=== PATIENT | male | born 1990 | race Caucasian/White ===

== ENCOUNTER 2018-09-23 22:42 | Emergency (ER) | payer BC, OTHER | END 2018-09-24 00:46 | disposition left against medical advice (07) | LOC: ER FS 22:44 | DX: R68.89 Other general symptoms and signs (principal) ==

== ENCOUNTER 2022-08-21 18:31 | Day surgery (SDC) | payer BC ==
[2022-08-21] VITALS (7 sets, daily range): BP systolic 103–130; BP diastolic 56–77
[~2022-08-21] VITALS: Ht 185.4 cm; Wt 130.6 kg
--- NOTE | 2022-08-21 18:57 | ED Abdominal Pain ---
General Chief Complaint: Abdominal/GI Problems Stated Complaint: LOWER ABDOMINAL PAIN Nursing Triage Note: PT AMB TO TRIAGE, PT CO OF R LOWER ABD PAIN SINCE LAST PM. DENIES N/V, HAS LOW GRADE FEVER. WAS SEEN AT DR CABRERA OFFICE IN [facility]. RATES PAIN 11/26. DENIES PROB W B OR B Source of Information: Patient History of Present Illness Date Seen by Provider: Aug 21, 2022 Time Seen by Provider: 18:49 Initial Comments PT ARRIVES VIA POV FROM HOME IN [place] C/O RLQ PAIN THAT WOKE HIM UP SEVERAL TIMES DURING THE NIGHT LAST NIGHT, AND HAS BEEN CONSTANT ALL DAY TODAY AND GETTING WORSE PAIN IS WORSE WITH WALKING, ANY MOVEMENT, BUMPS IN THE ROAD WHILE RIDING IN VEHICLE HAD SUBJECTIVE FEVER LAST NIGHT NO NAUSEA/VOMITING/DIARRHEA/CONSTIPATION NO URINARY SYMPTOMS DECREASED APPETITE TODAY, AT AROUND NOON HAD A CHEESEBURGER NO HISTORY OF SIMILAR NO PRIOR ABDOMINAL SURGERIES OR GI PROBLEMS PT IS NON-INSULIN DEPENDENT DIABETIC ON METFORMIN HE DOES NOT CHECK HIS BLOOD SUGAR OR FOLLOW DIABETIC DIET. HE HAS NOT TAKEN ANYTHING FOR PAIN WAS SEEN AT DR. AVILA'S OFFICE TODAY AROUND 1600--NO TESTS DONE. WAS TOLD THAT IF IT GOT WORSE TO GO TO ER . PCP: DR. AVILA, [place] Allergies and Home Medications Allergies Uncoded Allergies: ENVIROMENTAL (Allergy, Unknown, 08/21/22) Review of Systems Review of Systems Constitutional: see HPI, fever EENTM: No Symptoms Reported Respiratory: No Symptoms Reported Cardiovascular: No Symptoms Reported Gastrointestinal: See HPI, Abdominal Pain; Denies Constipated, Denies Diarrhea, Denies Nausea, Denies Vomiting Genitourinary: No Symptoms Reported Musculoskeletal: no symptoms reported Skin: no symptoms reported Psychiatric/Neurological: No Symptoms Reported Endocrine: No Symptoms Reported Hematologic/Lymphatic: No Symptoms Reported Past Buywzgg-Yrieqm-Szconz Hx Patient Social History Tobacco Use?: No Smoking Status: Never a Smoker Smokeless Tobacco Frequency: Never a User Use of E-Cig and/or Vaping Hola: Never a User Substance use?: No Alcohol Use?: Yes Alcohol Frequency: Rarely Pt feels they are or have been: No Past Medical History Surgery/Hospitalization HX: TYPE 2 DIABETES Surgeries: No Respiratory: No Cardiac: No Neurological: No Genitourinary: No Gastrointestinal: No Musculoskeletal: No Endocrine: Yes Diabetes, Non-Insulin dep HEENT: No Cancer: No Psychosocial: No Integumentary: No Blood Disorders: No Physical Exam Vital Signs Vital Signs - First Documented 08/21/22 18:37 Temp 36.9 Pulse 86 Resp 18 B/P (MAP) 135/92 (106) Pulse Ox 97 Capillary Refill : Less Than 3 Seconds Height/Weight/BMI Height: '" Weight: lbs. oz. kg; 37.00 BMI Method: General Appearance: WD/WN, no apparent distress, obese, other (WALKS AND MOVES SLOWLY, BUT WHEN ON ER CART HE LAYS FLAT AND COMPLETELY OUTSTRETCHED WITH ARMS OVER HEAD AND LEGS CROSSED AT ANKLES) HEENT: No scleral icterus (R), No scleral icterus (L) Neck: normal inspection Respiratory: normal breath sounds, no respiratory distress, no accessory muscle use Cardiovascular: regular rate, rhythm, no murmur Gastrointestinal: normal bowel sounds, soft; No distended, No guarding; rebound (EQUIVOCAL), tenderness (RLQ); No hernia, No mass; other (NEGATIVE ROVSING'S; + PSOAS; NEGATIVE OBTURATOR) Extremities: normal inspection, normal capillary refill Back: no CVA tenderness 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, no motor/sensory deficits, alert, normal mood/affect, oriented x 3 Skin: normal color, warm/dry; No rash Focused Exam Lactate Level 08/21/22 19:05: Lactic Acid Level 1.22 Lactic Acid Level Laboratory Tests Test 08/21/22 19:05 Lactic Acid Level 1.22 MMOL/L (0.50-2.00) Progress/Results/Core Measures Results/Orders Lab Results Laboratory Tests Test 08/21/22 18:50 08/21/22 19:00 08/21/22 19:05 Range/Units Urine Color YELLOW Urine Clarity CLOUDY Urine pH 7.0 5-9 Urine Specific [place] 1.015 L 1.016-1.022 Urine Protein TRACE H NEGATIVE Urine Glucose (UA) TRACE H NEGATIVE Urine Ketones NEGATIVE NEGATIVE Urine Nitrite NEGATIVE NEGATIVE Urine Bilirubin NEGATIVE NEGATIVE Urine Urobilinogen 4.0 < = 1.0 MG/DL Urine Leukocyte Esterase NEGATIVE NEGATIVE Urine RBC (Auto) NEGATIVE NEGATIVE Urine RBC NONE /HPF Urine WBC NONE /HPF Urine Squamous Epithelial Cells NONE /HPF Urine Crystals PRESENT H /LPF Urine Amorphous Sediment LARGE GIDEON URATES H /LPF Urine Bacteria TRACE /HPF Urine Casts NONE /LPF Urine Mucus NEGATIVE /LPF Urine Culture Indicated NO White Blood Count 8.3 4.3-11.0 10^3/uL Red Blood Count 5.35 4.30-5.52 10^6/uL Hemoglobin 16.1 13.3-17.7 g/dL Hematocrit 47 40-54 % Mean Corpuscular Volume 88 80-99 fL Mean Corpuscular Hemoglobin 30 25-34 pg Mean Corpuscular Hemoglobin Concent 34 32-36 g/dL Red Cell Distribution Width 12.0 10.0-14.5 % Platelet Count 269 130-400 10^3/uL Mean Platelet Volume 10.5 9.0-12.2 fL Immature Granulocyte % (Auto) 0 % Neutrophils (%) (Auto) 68 42-75 % Lymphocytes (%) (Auto) 20 12-44 % Monocytes (%) (Auto) 10 0-12 % Eosinophils (%) (Auto) 1 0-10 % Basophils (%) (Auto) 0 0-10 % Neutrophils # (Auto) 5.6 1.8-7.8 10^3/uL Lymphocytes # (Auto) 1.7 1.0-4.0 10^3/uL Monocytes # (Auto) 0.8 0.0-1.0 10^3/uL Eosinophils # (Auto) 0.1 0.0-0.3 10^3/uL Basophils # (Auto) 0.0 0.0-0.1 10^3/uL Immature Granulocyte # (Auto) 0.0 0.0-0.1 10^3/uL Erythrocyte Sedimentation Rate 5 0-15 MM/HR Sodium Level 138 135-145 MMOL/L Potassium Level 3.9 3.6-5.0 MMOL/L Chloride Level 103 98-107 MMOL/L Carbon Dioxide Level 24 21-32 MMOL/L Anion Gap 11 5-14 MMOL/L Blood Urea Nitrogen 10 7-18 MG/DL Creatinine 1.02 0.60-1.30 MG/DL Estimat Glomerular Filtration Rate 101 BUN/Creatinine Ratio 10 Glucose Level 130 H 70-105 MG/DL Calcium Level 9.8 8.5-10.1 MG/DL Corrected Calcium 8.5-10.1 MG/DL Total Bilirubin 1.7 H 0.1-1.0 MG/DL Aspartate Amino Transf (AST/SGOT) 14 5-34 U/L Alanine Aminotransferase (ALT/SGPT) 30 0-55 U/L Alkaline Phosphatase 73 40-136 U/L C-Reactive Protein High Sensitivity 4.39 H 0.00-0.50 MG/DL Total Protein 8.4 H 6.4-8.2 GM/DL Albumin 4.7 H 3.2-4.5 GM/DL Amylase Level 35 25-125 U/L Lipase 16 8-78 U/L Lactic Acid Level 1.22 0.50-2.00 MMOL/L My Orders Orders - CHELY AJ DO Accucheck Stat ONCE (08/21/22 18:51) Ed Iv/Invasive Line Start (08/21/22 18:51) Monitor-Rhythm Ecg Trace Only (08/21/22 18:51) Ct Abd/Pelv W (Appendicitis) (08/21/22 18:51) Amylase (08/21/22 18:51) Cbc With Automated Diff (08/21/22 18:51) Comprehensive Metabolic Panel (08/21/22 18:51) Hs C Reactive Protein (08/21/22 18:51) Lactic Acid Analyzer (08/21/22 18:51) Lipase (08/21/22 18:51) Ua Culture If Indicated (08/21/22 18:51) Blood Culture (08/21/22 18:51) Erythrocyte Sedimentation Rate (08/21/22 18:51) Ed Iv/Invasive Line Start (08/21/22 18:51) Ns Iv 1000 Ml (Sodium Chloride 0.9%) (08/21/22 19:00) Iohexol Injection (Omnipaque 350 Mg/Ml 1 (08/21/22 19:00) Received Contrast (Hold Metformin- Contr (08/21/22 19:00) Ns (Ivpb) (Sodium Chloride 0.9% Ivpb Bag (08/21/22 19:00) Lidocaine/Epi 1% 1:100,000 (Xylocaine /E (08/21/22 20:01) Medications Given in ED Current Medications Medications Dose Ordered Sig/Peace Route Start Time Stop Time Status Last Admin Dose Admin Iohexol 100 ml ONCE ONCE IV 08/21/22 19:00 08/21/22 19:01 DC 08/21/22 19:13 100 ML Sodium Chloride 100 ml ONCE ONCE IV 08/21/22 19:00 08/21/22 19:01 DC 08/21/22 19:13 80 ML Vital Signs/I&O 08/21/22 18:37 Temp 36.9 Pulse 86 Resp 18 B/P (MAP) 135/92 (106) Pulse Ox 97 Blood Pressure Mean: 106 Progress Progress Note : Progress Note GIVEN: -IV FLUIDS VITALS STABLE UNEVENTFUL ER STAY DISCUSSED TEST RESULTS, NEED FOR SURGERY AND PT IS AGREEABLE TO PLAN Diagnostic Imaging Comments CT ABDOMEN/PELVIS--PER RADIOLOGIST REPORT AT 1938 FINDINGS: The lung bases are clear. There is no pneumonia or edema. There is no pleural or pericardial effusion. Liver demonstrates no evidence of a focal intrahepatic abnormality. The gallbladder is nondistended. There are no radiodense stones or biliary dilatation. Hepatic and portal veins are patent. Pancreas is normal. The spleen is normal in size. There is no adrenal mass. The kidneys enhance normally. There is a simple appearing right renal cyst. There is no hydronephrosis. The bowel is normal in caliber without evidence of bowel obstruction. There is abnormal inflammatory fat stranding demonstrated about the appendix which also demonstrates mucosal hyperenhancement. The appendix measures 9 mm in caliber and the findings are compatible with an acute appendicitis. There is no pelvic free fluid. There is no abscess. There is no free air. The bladder is normal. The aorta is normal in caliber. There is no acute osseous abnormality. IMPRESSION: 1. Findings compatible with an acute appendicitis. Appendix is dilated, demonstrates periappendiceal fat stranding or mucosal hyperenhancement. No complicating features such as free air, abscess or obstruction are present. Reviewed: Reviewed by Me Departure Communication (Admissions) 1938--SPOKE WITH DR. ASHRAF, SURGEON, HE ADVISES TO HAVE MARKETING TEAM LEAD CALL IN OR CREW AND HE WILL BE IN TO SEE PT. MARKETING TEAM LEAD NOTIFIED. 2009--DR. ASHRAF HERE TO SEE PT. Impression Primary Impression: Appendicitis Disposition: ADMITTED INPATIENT Condition: Stable Admissions Decision to Admit Reason: Admit from ER (General) (TO SURGERY) Decision to Admit/Date: Aug 21, 2022 Time/Decision to Admit Time: 19:40 Departure-Patient Inst. Referrals: LUKAS AVILA MD (PCP) Primary Care Physician VIMAL DUFFY APRN (Family) Primary Care Physician CHELY AJ DO Aug 21, 2022 18:57
[2022-08-21 18:59] LABS: BILIRUBIN,URINE NEGATIVE (NEGATIVE); CLARITY,URINE CLOUDY; COLOR,URINE YELLOW; GLUCOSE, URINE (UA) TRACE (NEGATIVE); KETONES,URINE NEGATIVE (NEGATIVE); LEUKOCYTE ESTERASE ,URINE NEGATIVE (NEGATIVE); NITRITE,URINE NEGATIVE (NEGATIVE); PROTEIN,URINE TRACE (NEGATIVE)
[2022-08-21] MEDS ORDERED: NS IV 1000 ML 1,000 ML IV SCH (19:00)
[2022-08-21] MEDS ORDERED: HOLD METFORMIN - RECEIVED CONTRAST 20 ML VIAL IV SCH (19:00)
[2022-08-21] MEDS ORDERED: IOHEXOL 350 MG/ML 100 ML (OMNIPAQUE 350) VIAL IV ONE (19:00)
[2022-08-21] MEDS ORDERED: NS 100 ML (IVPB) BAG IV ONE (19:00)
[2022-08-21 19:06] LABS: BASOPHILS % (AUTO) 0 % (0-10); EOSINOPHILS # (AUTO) 0.1 10^3/uL (0.0-0.3); EOSINOPHILS % (AUTO) 1 % (0-10); HEMATOCRIT 47 % (40-54); HEMOGLOBIN 16.1 g/dL (13.3-17.7); LYMPHOCYTES # (AUTO) 1.7 10^3/uL (1.0-4.0); LYMPHOCYTES % (AUTO) 20 % (12-44); MEAN CORPUSCULAR HEMOGLOBIN 30 pg (25-34); MEAN CORPUSCULAR HGB CONC 34 g/dL (32-36); MEAN CORPUSCULAR VOLUME 88 fL (80-99); MEAN PLATELET VOLUME 10.5 fL (9.0-12.2); MONOCYTES # (AUTO) 0.8 10^3/uL (0.0-1.0); MONOCYTES % (AUTO) 10 % (0-12); NEUTROPHILS # (AUTO) 5.6 10^3/uL (1.8-7.8); NEUTROPHILS % (AUTO) 68 % (42-75); PLATELET COUNT 269 10^3/uL (130-400); WHITE BLOOD COUNT 8.3 10^3/uL (4.3-11.0)
[2022-08-21 19:27] LABS: ALBUMIN 4.7 GM/DL (3.2-4.5); CHLORIDE 103 MMOL/L (98-107); POTASSIUM 3.9 MMOL/L (3.6-5.0); SODIUM 138 MMOL/L (135-145)
[2022-08-21 19:28] LABS: AMYLASE 35 U/L (25-125); CALCIUM 9.8 MG/DL (8.5-10.1)
[2022-08-21 19:28] LABS: AMORPHOUS SEDIMENT,UR LARGE AMOR URATES /LPF; BACTERIA,URINE TRACE /HPF
--- NOTE | 2022-08-21 19:28 | Diagnostic Imaging Report ---
PROCEDURE: CT abdomen and pelvis with contrast, rule out appendicitis. TECHNIQUE: Multiple contiguous axial images were obtained through the abdomen and pelvis after the administration of intravenous contrast. All CT scans use one or more of the following dose optimizing techniques: automated exposure control, MA and/or KvP adjustment based on patient size and exam type or iterative reconstruction. INDICATION: Right lower quadrant pain. FINDINGS: The lung bases are clear. There is no pneumonia or edema. There is no pleural or pericardial effusion. Liver demonstrates no evidence of a focal intrahepatic abnormality. The gallbladder is nondistended. There are no radiodense stones or biliary dilatation. Hepatic and portal veins are patent. Pancreas is normal. The spleen is normal in size. There is no adrenal mass. The kidneys enhance normally. There is a simple appearing right renal cyst. There is no hydronephrosis. The bowel is normal in caliber without evidence of bowel obstruction. There is abnormal inflammatory fat stranding demonstrated about the appendix which also demonstrates mucosal hyperenhancement. The appendix measures 9 mm in caliber and the findings are compatible with an acute appendicitis. There is no pelvic free fluid. There is no abscess. There is no free air. The bladder is normal. The aorta is normal in caliber. There is no acute osseous abnormality. IMPRESSION: 1. Findings compatible with an acute appendicitis. Appendix is dilated, demonstrates periappendiceal fat stranding or mucosal hyperenhancement. No complicating features such as free air, abscess or obstruction are present. Dictated by: Dictated on workstation # [id number]
[2022-08-21 19:29] LABS: GLUCOSE 130 MG/DL (70-105); TOTAL PROTEIN 8.4 GM/DL (6.4-8.2)
[2022-08-21 19:30] LABS: CARBON DIOXIDE 24 MMOL/L (21-32)
[2022-08-21 19:31] LABS: BILIRUBIN,TOTAL 1.7 MG/DL (0.1-1.0)
[2022-08-21 19:33] LABS: ALKALINE PHOSPHATASE 73 U/L (40-136); CREATININE SERUM 1.02 MG/DL (0.60-1.30); GFR ESTIMATED 101
[2022-08-21 19:34] LABS: BUN/CREATININE RATIO 10
[2022-08-21 19:35] LABS: ERYTHROCYTE SEDIMENTATION RATE 5 MM/HR (0-15)
[2022-08-21 19:36] LABS: ALANINE AMINOTRANSFERASE 30 U/L (0-55); LIPASE 16 U/L (8-78)
[2022-08-21] MEDS ORDERED: LIDOCAINE/EPI 1%-1:100,000 (XYLOCAINE) 20ML ONE (20:01)
[2022-08-21] MEDS ORDERED: LIDOCAINE PF 2% 5 ML (XYLOCAINE) VIAL ONE (20:14)
[2022-08-21] MEDS ORDERED: MIDAZOLAM 2 MG/2 ML (VERSED) VIAL ONE (20:14)
[2022-08-21] MEDS ORDERED: proPOfol 200 MG/20 ML (DIPRIVAN) VIAL IV ONE ×2 (20:14→20:49)
[2022-08-21] MEDS ORDERED: SEVOFLURANE (ULTANE) 15 ML INHAL SOLN ONE ×2 (20:14→22:00)
[2022-08-21] MEDS ORDERED: ONDANSETRON 4 MG/2 ML (SDV) Z0FRAN ONE ×2 (20:14→21:09)
[2022-08-21] MEDS ORDERED: fentaNYL INJ 100 MCG/2 ML AMP ONE (20:14)
[2022-08-21] MEDS ORDERED: SUCCINYLCHOLINE INJ 20 MG/1 ML 10 ML VIAL ONE (20:17)
[2022-08-21] MEDS ORDERED: ceFAZolin INJECTION 2,000 MG ONE (20:29)
[2022-08-21] MEDS ORDERED: metroNIDAZOLE 500MG/100ML IVPB 100 ML ONE (20:29)
--- NOTE | 2022-08-21 20:34 | History & Physical-Surgical ---
History of Present Illness History of Present Illness Reason for visit/HPI Seen and evaluated in ED CC: rlq abdominal pain 32 year old male with right lower quadrant abdominal pain that started yesterday. Continued to day. Sharp pain. No radiation. Movement makes worse. Laying still makes better. Severe pain, a little better now. Has some chills. Denies n/v fever sweats shortness of breath or chest pain. Ct scan consistent with acute appendicitis. Date of Admission T Date Seen by a Provider: Aug 21, 2022 Time Seen by a Provider: 20:34 I consulted on this patient on 08/21/22 20:28 Attending Physician Isela Palmer MD Admitting Physician Admitting Physician: Attending Physician: Consult Allergies and Home Medications Allergies Uncoded Allergies: ENVIROMENTAL (Allergy, Unknown, 08/21/22) Patient Home Medication List Home Medication List Reviewed: Yes Past Tunqlzj-Smbjql-Mwofch Hx Patient Social History Smoking Status: Never a Smoker Alcohol Use?: Yes Have you traveled recently?: No Surgeries History of Surgeries: No Respiratory History of Respiratory Disorde: No Cardiovascular History of Cardiac Disorders: No Neurological History of Neurological Disord: No Genitourinary History of Genitourinary Disor: No Gastrointestinal History of Gastrointestinal Di: No Musculoskeletal History of Musculoskeletal Dis: No Endocrine History of Endocrine Disorders: Yes Endocrine Disorders: Diabetes, Non-Insulin dep HEENT History of HEENT Disorders: No Cancer History of Cancer: No Psychosocial History of Psychiatric Problem: No Integumentary History of Skin or Integumenta: No Blood Transfusions History of Blood Disorders: No Reviewed Nursing Assessment Reviewed/Agree w Nursing PMH: Yes Family Medical History Significant Family History: No Pertinent Family Hx Review of Systems Constitutional: chills; No fever EENTM: No blurred vision, No double vision Respiratory: No cough, No dyspnea on exertion, No short of breath Cardiovascular: No chest pain, No palpitations Gastrointestinal: RLQ, abdominal pain (RLQ); No nausea, No vomiting Genitourinary: No decreased output, No discharge Musculoskeletal: No back pain, No joint pain Skin: No change in color, No change in hair/nails Psychiatric/Neurological: Denies Anxiety, Denies Depressed, Denies Emotional Problems All Other Systems Reviewed Negative Unless Noted: Yes (Negative excepted noted.) Physical Exam Vital Signs Vital Signs - First Documented 4/4/23 18:37 Temp 36.9 Pulse 86 Resp 18 B/P (MAP) 135/92 (106) Pulse Ox 97 Capillary Refill : Less Than 3 Seconds Height, Weight, BMI Height: '" Weight: lbs. oz. kg; 37.00 BMI Method: General Appearance: No Apparent Distress, Obese HEENT: PERRL/EOMI, Normal ENT Inspection Neck: Normal Inspection, Non Tender, Supple Respiratory: Chest Non Tender, No Accessory Muscle Use, No Respiratory Distress Cardiovascular: Regular Rate, Rhythm, No JVD; No JVD Gastrointestinal: Tenderness (rlq) Rectal: Deferred Back: Normal Inspection, No Vertebral Tenderness Extremity: Non Tender, No Calf Tenderness Neurologic/Psychiatric: Alert, Oriented x3, No Motor/Sensory Deficits, Normal Mood/Affect Skin: Normal Color, Warm/Dry Lymphatic: No Adenopathy Data Review Labs Laboratory Tests 08/21/22 18:50: Urine Color YELLOW, Urine Clarity CLOUDY, Urine pH 7.0, Urine Specific [place] 1 .015L, Urine Protein TRACEH, Urine Glucose (UA) TRACEH, Urine Ketones NEGATIVE, Urine Nitrite NEGATIVE, Urine Bilirubin NEGATIVE, Urine Urobilinogen 4.0, Urine Leukocyte Esterase NEGATIVE, Urine RBC (Auto) NEGATIVE, Urine RBC NONE, Urine WBC NONE, Urine Squamous Epithelial Cells NONE, Urine Crystals PRESENTH, Urine Amorphous Sediment LARGE GIDEON URATESH, Urine Bacteria TRACE, Urine Casts NONE, Urine Mucus NEGATIVE, Urine Culture Indicated NO 08/21/22 19:00: White Blood Count 8.3, Red Blood Count 5.35, Hemoglobin 16.1, Hematocrit 47, Mean Corpuscular Volume 88, Mean Corpuscular Hemoglobin 30, Mean Corpuscular Hemoglobin Concent 34, Red Cell Distribution Width 12.0, Platelet Count 269, Mean Platelet Volume 10.5, Immature Granulocyte % (Auto) 0, Neutrophils (%) (Auto) 68, Lymphocytes (%) (Auto) 20, Monocytes (%) (Auto) 10, Eosinophils (%) (Auto) 1, Basophils (%) (Auto) 0, Neutrophils # (Auto) 5.6, Lymphocytes # (Auto) 1.7, Monocytes # (Auto) 0.8, Eosinophils # (Auto) 0.1, Basophils # (Auto) 0.0, Immature Granulocyte # (Auto) 0.0, Erythrocyte Sedimentation Rate 5, Sodium Level 138, Potassium Level 3.9, Chloride Level 103, Carbon Dioxide Level 24, Anion Gap 11, Blood Urea Nitrogen 10, Creatinine 1.02, Estimat Glomerular Filtration Rate 101, BUN/Creatinine Ratio 10, Glucose Level 130H, Calcium Level 9.8, Corrected Calcium , Total Bilirubin 1.7H, Aspartate Amino Transf (AST/SGOT) 14, Alanine Aminotransferase (ALT/SGPT) 30, Alkaline Phosphatase 73, C-Reactive Protein High Sensitivity 4.39H, Total Protein 8.4H, Albumin 4.7H, Amylase Level 35, Lipase 16 08/21/22 19:05: Lactic Acid Level 1.22 Assessment/Plan Assessment/Plan Admission Diagonsis rlq abdominal pain acute appendicitis Admission Status: Other (Same Day Surgery) Assessment/Plan rlq abdominal pain acute appendicitis patient with acute appendicitis understands risks and benefits and wishes to proceed with laparoscopic appendectomy all other indicated procedures. NPO Ancef 2 grams and Flagyl 500 preop To OR DIAZ ASHRAF DO Aug 21, 2022 20:34
[2022-08-21] MEDS: LACTATED RINGERS 1,000 ML IV PRN ×2 (20:35→21:17)
[2022-08-21] MEDS ORDERED: HYDROmorphone 2 MG/ML VIAL (DILAUDID) ONE ×2 (20:59→21:09)
[2022-08-21] MEDS ORDERED: METOCLOPRAMIDE INJ 10 MG/2 ML (REGLAN) ONE (21:57)
[2022-08-21] MEDS ORDERED: SUGAMMADEX 500 MG/5 ML VIAL (BRIDION) IV ONE (21:58)
[2022-08-21] MEDS ORDERED: KETOROLAC 30 MG/ML VIAL ONE (22:00)
--- NOTE | 2022-08-21 22:09 | Progress Note-Post Operative ---
Post-Operative Progess Note Surgeon (s)/Policy Cancellation Clerk (s) Surgeon DIAZ ASHRAF DO Policy Cancellation Clerk: na Pre-Operative Diagnosis acute appendicitis Post-Operative Diagnosis same Procedure & Operative Findings Date of Procedure 08/21/22 Procedure Performed/Findings PROCEDURE: Laparoscopic appendectomy. COMPLICATIONS: None. INDICATIONS: The patient is a 32 year old male who has been having right lower quadrant abdominal pain. Patient's exam consistent with appendicitis. I discussed risk and benefits of laparoscopic appendectomy and all indicated procedures with the possibility being a normal appendix. The patient understands the risks and benefits and wishes to proceed. Consent was signed on the chart. DESCRIPTION OF PROCEDURE: The patient was taken to the operating suite, prepped and draped in a sterile fashion. Timeout was performed. Local anesthetic was infiltrated just above the umbilicus and 11-blade scalpel was used to make a skin incision. Cautery was used to dissect down to the fascia and scored. Kochers were used to grasp and elevate it and the abdomen was then entered. A 0 Vicryl was placed in a [id number]-[id number] fashion for closure at the end of the case. The balloon trocar was inserted into the abdomen and pneumoperitoneum was achieved. Under direct visualization of the laparoscope, a 5 mm trocar was placed in the suprapubic region and a 5 mm trocar was placed in the left lower quadrant. Appendix was located, distal portion inflamed and dilated. The base of the appendix was dissected around. Once at the base an Endo-GENOVEVA 2.5 stapler was then fired across the base of the appendix. The mesoappendix was then divided. It was then placed in an Endobag and removed through the 12 mm trocar site. The abdomen was then irrigated and suctioned. No other pathology noted. The abdomen was then desufflated and the trocars were removed. The 0 Vicryl placed at the beginning of the case was then tied closing the 12 mm fascial defect. The skin was then closed using 4-0 Monocryl in a subcuticular fashion. The abdomen was then washed and dried and Skin Affix was placed over the incisions. The patient tolerated the procedure well without any complications and was taken to the recovery room in stable condition. Anesthesia Type general Estimated Blood Loss Estimated blood loss (mL): minimal Specimens/Packing Specimens Removed DIAZ Orozco DO Aug 21, 2022 22:09
[2022-08-21] MEDS ORDERED: morphine INJ 4 MG/ML 1 ML (VIAL/SYRINGE) IVP PRN (22:15)
[2022-08-21] MEDS ORDERED: ONDANSETRON 4 MG/2 ML (SDV) Z0FRAN IV PRN (22:15)
[2022-08-21] MEDS ORDERED: LACTATED RINGERS 1,000 ML IV SCH (22:15)
--- NOTE | 2022-08-21 22:27 | Anesthesia-General Post-Op ---
General Patient Condition Mental Status/LOC: Same as Preop Cardiovascular: Satisfactory Nausea/Vomiting: Absent Respiratory: Satisfactory Pain: Controlled Complications: Absent Post Op Complications Complications None Follow Up Care/Instructions Patient Instructions None needed. Anesthesia/Patient Condition Patient Condition Patient is doing well, no complaints, stable vital signs, no apparent adverse anesthesia problems. No complications reported per nursing. [place] [facility] [place] Yes JUDY HEAD CRNA Aug 21, 2022 22:27
[2022-08-21] MEDS ORDERED: HYDROmorphone 2 MG/ML VIAL (DILAUDID) IV ONE (22:30)
[2022-08-21] MEDS ORDERED: ONDANSETRON 4 MG/2 ML (SDV) Z0FRAN IVP PRN (22:30)
[2022-08-22 00:10] VITALS: BP 131/60
[2022-08-22] MEDS: HYDROcodone/APAP 5 MG/325 MG (LORTAB) TAB PO PRN ×3 (02:11→12:08)
[2022-08-22] MEDS ORDERED: NS (IVPB) 250 ML ONE (03:54)
[2022-08-22 04:25] VITALS: BP 134/60
[2022-08-22] MEDS: metroNIDAZOLE 500MG/100ML IVPB 100 ML IV SCH ×2 (04:30→11:59)
[2022-08-22] MEDS ORDERED: ceFAZolin INJECTION 2,000 MG ONE (04:53)
[2022-08-22] MEDS ORDERED: NS (IVPB) 50 ML ONE (04:53)
[2022-08-22] MEDS: ceFAZolin INJECTION 2,000 MG in NS (IVPB) 50 ML IV SCH ×2 (05:35→12:00)
[2022-08-22 07:36] VITALS: BP 114/56
--- NOTE | 2022-08-22 08:34 | Progress Note - Surgery ---
[facility] 08/22/22 0834: Subjective Date Seen by a Provider: Aug 22, 2022 Time Seen by a Provider: 08:28 Subjective/Events-last exam Today patient is lying comfortably in bed. He has been able to get out of bed and go to the bathroom. Pain is minimal, worst 3-4/10 with walking, mostly over periumbilical incision. Pain improved with pain medication and ice. He had formed BM last night and is passing flatus, urinating without issue. Denies fever, SOB, CP, nausea, vomiting. Review of Systems General: No Chills, No Night Sweats HEENT: No Head Aches, No Visual Changes Pulmonary: No Dyspnea, No Cough Cardiovascular: No: Chest Pain, Palpitations Gastrointestinal: Abdominal Pain (incisional); No: Nausea, Vomiting Genitourinary: No Dysuria, No Frequency Musculoskeletal: No: neck pain, shoulder pain Neurological: No: Weakness, Numbness Focused Exam Lactate Level 08/21/22 19:05: Lactic Acid Level 1.22 Objective Exam Vital Signs Date Time Temp Pulse Resp B/P (MAP) Pulse Ox O2 Delivery O2 Flow Rate FiO2 08/22/22 07:36 35.6 71 18 114/56 (75) 97 Room Air 08/22/22 06:48 94 Room Air 08/22/22 04:25 36.5 72 14 134/60 (84) 94 Nasal Cannula 1.00 08/22/22 00:10 76 12 131/60 (83) 96 Nasal Cannula 3.00 08/22/22 00:05 Nasal Cannula 3.00 08/21/22 23:20 36.8 20 119/77 (91) 98 Nasal Cannula 4.00 08/21/22 23:20 Nasal Cannula 4.00 08/21/22 23:15 Nasal Cannula 4.00 08/21/22 23:10 20 113/65 (81) 96 Nasal Cannula 4.00 08/21/22 23:00 Nasal Cannula 4.00 08/21/22 23:00 20 130/63 (85) 96 Nasal Cannula 4.00 08/21/22 22:50 20 119/63 (81) 95 OxyMask 3.00 08/21/22 22:45 OxyMask 4.00 08/21/22 22:40 20 108/60 (76) 97 OxyMask 6.00 08/21/22 22:30 OxyMask 6.00 08/21/22 22:30 20 104/56 (72) 97 OxyMask 6.00 08/21/22 22:20 OxyMask 6.00 08/21/22 22:20 36.8 20 103/56 (72) 97 OxyMask 6.00 08/21/22 20:32 36.9 86 18 134/85 97 08/21/22 18:37 36.9 86 18 135/92 (106) 97 I & O 08/22/22 07:00 Intake Total 2600 ml Output Total 400 ml Balance 2200 ml Capillary Refill : Less Than 3 SecondsLess Than 3 Seconds General Appearance: No Apparent Distress, WD/WN HEENT: PERRL/EOMI, Pharynx Normal, Moist Mucous Membranes Neck: Full Range of Motion, Normal Inspection, Non Tender, Supple Respiratory: Chest Non Tender, Normal Breath Sounds, No Accessory Muscle Use, No Respiratory Distress Cardiovascular: Regular Rate, Rhythm, No Edema, Normal Peripheral Pulses; No JVD Peripheral Pulses: 2+ Radial Pulses (R), 2+ Radial Pulses (L) Gastrointestinal: normal bowel sounds, soft, tenderness (most over periumbilical incision) Extremity: Normal Capillary Refill, Non Tender Neurologic/Psychiatric: Alert, Oriented x3, Normal Mood/Affect Skin: Normal Color, Warm/Dry, Other (abdominal incisions c/d/i) Lymphatic: No Adenopathy Results Lab Laboratory Tests 08/21/22 18:50: Urine Color YELLOW, Urine Clarity CLOUDY, Urine pH 7.0, Urine Specific [place] 1.015L, Urine Protein TRACEH, Urine Glucose (UA) TRACEH, Urine Ketones NEGATIVE, Urine Nitrite NEGATIVE, Urine Bilirubin NEGATIVE, Urine Urobilinogen 4.0, Urine Leukocyte Esterase NEGATIVE, Urine RBC (Auto) NEGATIVE, Urine RBC NONE, Urine WBC NONE, Urine Squamous Epithelial Cells NONE, Urine Crystals PRESENTH, Urine Amorphous Sediment LARGE GIDEON URATESH, Urine Bacteria TRACE, Urine Casts NONE, Urine Mucus NEGATIVE, Urine Culture Indicated NO 08/21/22 19:00: White Blood Count 8.3, Red Blood Count 5.35, Hemoglobin 16.1, Hematocrit 47, Mean Corpuscular Volume 88, Mean Corpuscular Hemoglobin 30, Mean Corpuscular Hemoglobin Concent 34, Red Cell Distribution Width 12.0, Platelet Count 269, Mean Platelet Volume 10.5, Immature Granulocyte % (Auto) 0, Neutrophils (%) (Auto) 68, Lymphocytes (%) (Auto) 20, Monocytes (%) (Auto) 10, Eosinophils (%) (Auto) 1, Basophils (%) (Auto) 0, Neutrophils # (Auto) 5.6, Lymphocytes # (Auto) 1.7, Monocytes # (Auto) 0.8, Eosinophils # (Auto) 0.1, Basophils # (Auto) 0.0, Immature Granulocyte # (Auto) 0.0, Erythrocyte Sedimentation Rate 5, Sodium Level 138, Potassium Level 3.9, Chloride Level 103, Carbon Dioxide Level 24, Anion Gap 11, Blood Urea Nitrogen 10, Creatinine 1.02, Estimat Glomerular Filtration Rate 101, BUN/Creatinine Ratio 10, Glucose Level 130H, Calcium Level 9.8, Corrected Calcium , Total Bilirubin 1.7H, Aspartate Amino Transf (AST/SGOT) 14, Alanine Aminotransferase (ALT/SGPT) 30, Alkaline Phosphatase 73, C-Reactive Protein High Sensitivity 4.39H, Total Protein 8.4H, Albumin 4.7H, Amylase Level 35, Lipase 16 08/21/22 19:05: Lactic Acid Level 1.22 Assessment/Plan Assessment/Plan Assessment/Plan S/p appendectomy POD1 Abdominal pain Pt doing well post-op, no fevers Continue pain control Normal diet Discharge home today F/u with Dr. Sparrow in clinic 2 weeks, discussed no heavy lifting and precautions until then DIAZ SPARROW DO 08/22/22 1605: Subjective Subjective/Events-last exam Feeling well today. Pain controlled. Tolerating diet. Denies any other complaints. No n/v fever sweats chills shortness of breath or chest pain. Objective Exam General Appearance: No Apparent Distress, WD/WN HEENT: PERRL/EOMI, Normal ENT Inspection Neck: Full Range of Motion, Non Tender, Supple Respiratory: Chest Non Tender, No Accessory Muscle Use, No Respiratory Distress Cardiovascular: Regular Rate, Rhythm, No JVD Gastrointestinal: soft, tenderness (incisional, incisions c/d/i no signs of infectino) Extremity: Normal Capillary Refill, Non Tender Neurologic/Psychiatric: Alert, Oriented x3, Normal Mood/Affect Skin: Normal Color, Warm/Dry Lymphatic: No Adenopathy Assessment/Plan Assessment/Plan Assessment/Plan S/p appendectomy POD1 right lower quadrant abdominal pain acute appendicitis Continue pain control Normal diet Discharge home today F/u with Dr. Sparrow in clinic 2 weeks, discussed no heavy lifting and precautions until then Final Diagnosis S/p appendectomy POD1 right lower quadrant abdominal pain acute appendicitis Supervisory-Addendum Brief Verification & Attestation Participated in pt care: history, MDM, physical Personally performed: exam, history, MDM, supervision of care Care discussed with: Medical Student Procedures: n/a Results interpretation: Verified all documentation Verification and Attestation of Medical Student E/M Service A medical student performed and documented this service in my presence. I reviewed and verified all information documented by the medical student and made modifications to such information, when appropriate. I personally performed the physical exam and medical decision making. Diaz Sparrow, Aug 22, 2022,16:05 PEDRO MCKEON Aug 22, 2022 08:34 DIAZ SPARROW DO Aug 22, 2022 16:05
[2022-08-22 11:11] VITALS: BP 111/54
[2022-08-22] MEDS ORDERED: METF-397 PO (11:59)
[2022-08-22] MEDS ORDERED: DOCU-143 PO (16:00)
[2022-08-22] MEDS ORDERED: ACHD5005 PO (16:00)
--- NOTE | 2022-08-22 16:01 | Discharge Inst-Simple/Standard ---
Discharge Inst-Standard Discharge Medications New, Converted or Re-Newed RX: Transmitted to Pharmacy Patient Instructions/Follow Up Plan of Care/Instructions/FU: 2 weeks Kyraa Activity as Tolerated: No Discharge Diet: Regular Diet Other Inst to Patient Follow up Appt: Make appointment for 2 week. Instructions: No lifting greater than 10 pounds. No strenuous activity. May shower in 24 hours, no tub bath or soaking. Use incentive spirometer at home as directed. No Smoking Skin/Wound Care: You have special glue over your incision that will fall off on it's own. Symptoms to Report: Appetite Changes, Extremity Discoloration, Numbness/Tingling, Swelling Increased, Bleeding Excessive, Eyesight Changes, Pain Increased, Urine Color Change, Constipation(Persistent), Fever over 101 degree F, Pain/Pressure in chest, Urinating Difficulty, Cough Up/Vomit Blood, Heart Beat Irreg/Pounding, Pain/Pressure in jaw, Vaginal Bleeding Increase, Cramps in feet or legs, Lightheadedness, Pain/Pressure in shoulder, Diarrhea(Persistent), Memory Changes Suddenly, Questions/Concerns, Weight gain consecutive days, Dizziness/Fainting, Nausea/Vomiting, Shortness of Breath, Weight gain over 2 pounds If questions or concerns contact your physician Or seek help at emergency department. DIAZ ASHRAF DO Aug 22, 2022 16:01
[2022-08-22 16:02] VITALS: BP 152/64
[2022-08-22 16:03] VITALS: BP 111/54
[2022-08-23] MEDS ORDERED: ceFAZolin INJECTION 2,000 MG in NS (IVPB) 50 ML IV SCH (04:00)
== END 2022-08-22 14:00 | disposition home or self-care (01) ==
LOC: EDUNIT# 18:31 → ER 18:33 → SDC 20:28 → 4TH 23:20 → UNDOADMOB 23:20 → SDC 23:20 → UNDODISOB 08-22 14:00
PROVIDERS: ATTEND Surgery
DX: K35.80 Unspecified acute appendicitis (principal); E66.9 Obesity, unspecified; Z68.37 Body mass index [BMI] 37.0-37.9, adult
CPT/HCPCS: 36415; 74177; 80053; 81000; 82150; 83605; 83690; 85025; 85652; 86141; 87040; 88304; 96366; 96376

== ENCOUNTER → 2022-08-21 | Outpatient (CLI) | payer BC ==
[~2022-08-21] MED LIST: ACHD5005 PO; DOCU-143 PO; METF-397 PO
[2022-08-21 18:28] LABS: BASOPHILS % (AUTO) 0 % (0-10); EOSINOPHILS # (AUTO) 0.1 10^3/uL (0.0-0.3); EOSINOPHILS % (AUTO) 1 % (0-10); HEMATOCRIT 45 % (40-54); HEMOGLOBIN 15.2 g/dL (13.3-17.7); LYMPHOCYTES # (AUTO) 1.6 10^3/uL (1.0-4.0); LYMPHOCYTES % (AUTO) 19 % (12-44); MEAN CORPUSCULAR HEMOGLOBIN 31 pg (25-34); MEAN CORPUSCULAR HGB CONC 34 g/dL (32-36); MEAN CORPUSCULAR VOLUME 90 fL (80-99); MEAN PLATELET VOLUME 11.4 fL (9.0-12.2); MONOCYTES # (AUTO) 0.8 10^3/uL (0.0-1.0); MONOCYTES % (AUTO) 9 % (0-12); NEUTROPHILS # (AUTO) 5.7 10^3/uL (1.8-7.8); NEUTROPHILS % (AUTO) 69 % (42-75); PLATELET COUNT 243 10^3/uL (130-400); WHITE BLOOD COUNT 8.2 10^3/uL (4.3-11.0)
[2022-08-21 18:45] LABS: ALANINE AMINOTRANSFERASE 24 U/L (0-55); ALKALINE PHOSPHATASE 81 U/L (40-136); BILIRUBIN,TOTAL 1.4 MG/DL (0.1-1.0); BUN/CREATININE RATIO 11; CALCIUM 9.7 MG/DL (8.5-10.1); CARBON DIOXIDE 27 MMOL/L (21-32); CHLORIDE 102 MMOL/L (98-107); CREATININE SERUM 0.98 MG/DL (0.60-1.30); GFR ESTIMATED 106; GLUCOSE 162 MG/DL (70-105); POTASSIUM 4.3 MMOL/L (3.6-5.0); SODIUM 138 MMOL/L (135-145); TOTAL PROTEIN 7.9 GM/DL (6.4-8.2)
[2022-08-21 18:46] LABS: ALBUMIN 4.7 GM/DL (3.2-4.5); LIPASE 20 U/L (8-78)
== END ==
LOC: GIR 17:48
PROVIDERS: ATTEND Registered Nurse Emergency
DX: R10.31 Right lower quadrant pain (principal)
CPT/HCPCS: 80053; 83690; 85025; 86141